=== PATIENT | female | born 1985 | race Caucasian/White ===

== ENCOUNTER 2016-09-03 11:22 | Observation (INO) | payer OTHER ==
[2016-09-03] MEDS: Lactated Ringers 1,000 ML PRIMARY IV ONE ×2 (11:55→12:30)
[2016-09-03] MEDS ORDERED: NORMAL SALINE 10 ML SYRINGE FLUSH IVP PRN ×2 (12:03→13:26)
[2016-09-03 12:16] LABS: BASOPHILS # (AUTO) 0.01 10*3/UL; BASOPHILS % (AUTO) 0.2 % (0-1); EOSINOPHILS % (AUTO) 0.3 % (0-8); HEMATOCRIT 23.9 % (37.0-47.0); HEMOGLOBIN 7.6 g/dL (12.0-16.0); IMM GRAN % (AUTO) 0.2 % (0-5); IMM GRAN# (AUTO) 0.01 10*3/UL; LYMPHOCYTES # (AUTO) 0.98 10*3/uL; LYMPHOCYTES % (AUTO) 15.9 % (10-50); MEAN CORPUSCULAR HEMOGLOBIN 29.7 PG (27-31); MEAN CORPUSCULAR HGB CONC 31.8 g/dL (33-37); MEAN PLATELET VOLUME 12.6 FL (7.4-12.2); MONOCYTES # (AUTO) 0.39 10*3/UL (0.3-0.8); MONOCYTES % (AUTO) 6.3 % (5-15); NEUTROPHILS # (AUTO) 4.75 10*3/UL; NEUTROPHILS % (AUTO) 77.1 % (50-80); RDW COEFFICIENT OF VARIATION 15.1 % (11.5-14.5); RED BLOOD COUNT 2.56 10^6/uL (4.20-5.40); WHITE BLOOD COUNT 6.16 10^3/uL (4.8-10.8)
[2016-09-03 12:19] LABS: PLATELET MORPHOLOGY COMMENT NORMAL MORPHOLOGY (NORM)
--- NOTE | 2016-09-03 12:28 | CONSULT ---
Consult Note - Consult Consult Date: 09/03/16 Reason for Consult: Other Requesting Physician: Dr. Owens Primary Care Provider: ADARSH OWENS - History of Present Illness History of Present Illness: This is a 30 years old female with medical history significant for history of sciatica, pneumonia back in October last year she said she was transferred to [place] they told her that she had some fluid overload after discharge she did not need any medications after that, she takes sometimes a muscle relaxer she said at night for sciatica. The hospitalist service were consulted because of bradycardia. The patient is in active labor, this is her fourth , she said she did feel earlier somewhat dizzy and had some chest pressure but not anymore now. There is no history of cardiac disease as far as she knows, they did do an echo back in October in [place] and did not tell if there is any abnormalities. Patient was laying in bed does not appear in distress. Past Medical History Medical History: History of pneumonia back in October of this year she was transferred to [place] was found to have fluid overload then. Surgical History: Appendectomy. Family History: Reviewed an Not Pertinent Tobacco Use: Never Smoker Substance Use Type: None Alcohol Use: None Review of Systems - Review of Systems All Systems: Reviewed & No Additional Complaints Except as Stated Medication / Allergies Home Medications: Home Medications Medication Instructions Recorded Confirmed Type Vit W-Ca,Fe,FA(<1 mg) 1 each PO DAILY #30 tab 06/11/16 Clinic [ Vitamins] Ferrous Sulfate EC [Feosol Ec] 324 mg PO QD #30 tab 07/01/16 Clinic HYDROcodone/APAP 5/325 Tab [[place] 1 each PO Q6H #10 tablet 08/20/16 Rx 5/325 Tab] Hydrocodone/Acetaminophen 1 tab PO Q6H PRN #20 tab 08/27/16 Clinic [Hydrocodon-Acetaminophen 5-325] Allergies/Adverse Reactions: Allergies Allergy/AdvReac Type Severity Reaction Status Date / Time No Known Allergies Allergy Verified 08/20/16 18:19 Exam - Vitals Vital Signs: Vital Signs Height 5 ft 6 in - General General Appearance: POSITIVE: No Acute Distress, Cooperative - Head Head Exam: POSITIVE: Normal Inspection - Eye Eye Exam: POSITIVE: Normal Appearance - ENT ENT Exam: POSITIVE: Normal Exam - Neck Neck Exam: POSITIVE: Normal Inspection - Respiratory Respiratory Exam: POSITIVE: Clear to Auscultation - Bilaterally - Cardiovascular Cardiovascular Exam: POSITIVE: RRR - GI/Abdominal Additional GI/Abdominal Exam Details: Monitors the applied to her abdomen. Torso heart rate and contractions. - Extremities Additional Extremities Exam Details: A bruise noted on the left anterior schafer - Neurological Neurological Exam: POSITIVE: Alert, Oriented x 3, CN II-XII Intact - Psychiatric Psychiatric Exam: POSITIVE: Normal Affect Results - Labs CBC and BMP: 09/03/16 12:00 Labs - Last 24 Hours: Laboratory Results 09/03/16 Range/Units 12:00 WBC 6.16 (4.8-10.8) 10^3/uL RBC 2.56 L (4.20-5.40) 10^6/uL Hgb 7.6 L (12.0-16.0) g/dL Hct 23.9 L (37.0-47.0) % MCV 93.4 (81-99) FL MCH 29.7 (27-31) PG MCHC 31.8 L (33-37) g/dL RDW Std Deviation 49.3 (39-50) fL RDW Coeff of Telly 15.1 H (11.5-14.5) % Plt Count 102 L (140-350) 10*3/uL MPV 12.6 H (7.4-12.2) FL Immature Gran % (Auto) 0.2 (0-5) % Neut % (Auto) 77.1 (50-80) % Lymph % (Auto) 15.9 (10-50) % Phillips % (Auto) 6.3 (5-15) % Eos % (Auto) 0.3 (0-8) % Baso % (Auto) 0.2 (0-1) % Immature Gran # (Auto) 0.01 10*3/UL Neut # (Auto) 4.75 10*3/UL Lymph # (Auto) 0.98 10*3/uL Phillips # (Auto) 0.39 (0.3-0.8) 10*3/UL Eos # (Auto) 0.02 10*3/UL Baso # (Auto) 0.01 10*3/UL WBC Morphology Comment Normal morphology (NORM) Plt Morphology Comment Normal morphology (NORM) RBC Morph Comment Normal morphology (NORM) Assessment and Plan - Patient Problems (1) Ectopic beats Current Visit: Yes Status: Acute Comment: The nurses thought that she had bradycardia, however that was on the pulse monitor. We put her on telemetry and did an EKG. EKG showed sinus rhythm with ectopic beats I think we'll check her potassium and magnesium. And we will watch. CBC was already ordered by Dr. Owens.
[2016-09-03 12:58] LABS: BASOPHILS # (AUTO) 0.02 10*3/UL; BASOPHILS % (AUTO) 0.2 % (0-1); EOSINOPHILS % (AUTO) 0.3 % (0-8); HEMATOCRIT 34.5 % (37.0-47.0); HEMOGLOBIN 11.4 g/dL (12.0-16.0); IMM GRAN % (AUTO) 0.3 % (0-5); IMM GRAN# (AUTO) 0.03 10*3/UL; LYMPHOCYTES # (AUTO) 1.32 10*3/uL; LYMPHOCYTES % (AUTO) 14.5 % (10-50); MEAN CORPUSCULAR HEMOGLOBIN 29.9 PG (27-31); MEAN PLATELET VOLUME 12.7 FL (7.4-12.2); MONOCYTES # (AUTO) 0.64 10*3/UL (0.3-0.8); NEUTROPHILS # (AUTO) 7.05 10*3/UL; NEUTROPHILS % (AUTO) 77.7 % (50-80); RDW COEFFICIENT OF VARIATION 15.5 % (11.5-14.5); RED BLOOD COUNT 3.81 10^6/uL (4.20-5.40); WHITE BLOOD COUNT 9.09 10^3/uL (4.8-10.8)
--- NOTE | 2016-09-03 13:01 | OB.PROGRES ---
Date and Time of Service: 09/03/16 @ 1215 Interval History: The patient was sent to labor and delivery this morning after c/o pelvic pain and pressure. Once she arrived to the L&D unit, she was noted to have an intermittent heart rate drops to the 20s-30s. She apparently was having some chest pain and pressure when the low heart rate. She was dehydrated upon admission. Dr. Duong was consulted and saw the pt. An EKG and labs were ordered. She notes that she was having some pelvic pain and contractions. Denies vag bleeding or gushes of fluid. Objective - Cervical Exam Cervical Exam: /-1 per Dian RN [place]: irritability, occasional contractions Heart Rate: 130s, + accels, no decels noted Heart Rate Interpretation Category: Category I - Labs CBC and BMP: 09/03/16 12:00 Labs - Last 24 Hours: Laboratory Results 09/03/16 Range/Units 12:00 WBC 6.16 (4.8-10.8) 10^3/uL RBC 2.56 L (4.20-5.40) 10^6/uL Hgb 7.6 L (12.0-16.0) g/dL Hct 23.9 L (37.0-47.0) % MCV 93.4 (81-99) FL MCH 29.7 (27-31) PG MCHC 31.8 L (33-37) g/dL RDW Std Deviation 49.3 (39-50) fL RDW Coeff of Telly 15.1 H (11.5-14.5) % Plt Count 102 L (140-350) 10*3/uL MPV 12.6 H (7.4-12.2) FL Immature Gran % (Auto) 0.2 (0-5) % Neut % (Auto) 77.1 (50-80) % Lymph % (Auto) 15.9 (10-50) % Mccracken % (Auto) 6.3 (5-15) % Eos % (Auto) 0.3 (0-8) % Baso % (Auto) 0.2 (0-1) % Immature Gran # (Auto) 0.01 10*3/UL Neut # (Auto) 4.75 10*3/UL Lymph # (Auto) 0.98 10*3/uL [place] # (Auto) 0.39 (0.3-0.8) 10*3/UL Eos # (Auto) 0.02 10*3/UL Baso # (Auto) 0.01 10*3/UL WBC Morphology Comment Normal morphology (NORM) Plt Morphology Comment Normal morphology (NORM) RBC Morph Comment Normal morphology (NORM) Assessment and Plan - Patient Problems (1) Ectopic beats Current Visit: Yes Status: Acute (2) Term Current Visit: Yes Status: Acute - Assessment / Plan Additional Assessment/Plan Details: -pt seen in conjunction with Dr. Duong, the hospitalist. She is having frequent PVCs on EKG, but no arrhythmias. Her hgb is also slightly low, but this is being re-run in the lab at this time. Her BMP is also pending. -will keep the pt for now in observation on telemetry. -she did have significant cervical change from last week, so will also monitor for labor. -GBS is pending as it did not get run in the lab last week. I re-collected it in the office today. -anti-E antibody--lab has ordered this blood and will have it available for transfusion should the pt need it after delivery. She may or may not be in labor at this time. -continue to monitor closely. - Time Time Spent With Patient: Greater Than 35 Mint[place]
[2016-09-03 13:04] LABS: PLATELET MORPHOLOGY COMMENT NORMAL MORPHOLOGY (NORM)
[2016-09-03 13:11] LABS: CHLORIDE 105 meq/L (98-112); POTASSIUM 4.1 meq/L (3.8-5.2); SODIUM 136 meq/L (135-145)
[2016-09-03 13:12] LABS: ASPARTATE AMINO TRANSFERASE 20 IU/L (8-39); BILIRUBIN,TOTAL 0.6 mg/dL (0.3-1.2); BLOOD UREA NITROGEN 9 mg/dL (7-22); CALCIUM 8.4 mg/dL (8.7-10.7); CREATININE 0.6 mg/dL (0.50-1.20); EST GLOMERULAR FILTRATION > 60 (>60 ml/min/1.73m(2)); GLUCOSE 62 mg/dL (78-110); TOTAL PROTEIN 6.1 g/dL (6.1-8.0)
[2016-09-03 13:22] LABS: BILIRUBIN,URINE NEGATIVE (NEG); CLARITY,URINE CLEAR (CLEAR); GLUCOSE, URINE (UA) NEGATIVE (NEG); LEUKOCYTE ESTERASE ,URINE TRACE (NEG); NITRATE,URINE NEGATIVE (NEG); OCCULT BLOOD,URINE MODERATE (NEG); PH,URINE 6.5 (5.0-8.5); PROTEIN,URINE NEGATIVE (NEG); UROBILINOGEN,URINE 0.2 EU/dL (0.2)
[2016-09-03 13:24] LABS: URINE SAMPLE TYPE CLEAN CATCH URINE
[2016-09-03] MEDS ORDERED: ONDANSETRON 4 MG/2 ML VIAL IVP PRN (13:26)
[2016-09-03] MEDS ORDERED: LIDOCAINE W/ SODIUM BICARB 0.5 ML SYR SUBD PRN (13:26)
[2016-09-03 13:31] LABS: BACTERIA,URINE RARE; SQUAMOUS EPITHELIAL CELL,UR MANY
--- NOTE | 2016-09-03 13:31 | EKG ---
[address] [place] [id number] Measurements Intervals [place] Rate: 76 P: 11 GA: 164 QRS: 98 QRSD: 89 T: 36 QT: 357 QTc: 387 Interpretive Statements SINUS RHYTHM WITH FREQUENT VENTRICULAR PREMATURE COMPLEXES BORDERLINE RIGHT AXIS DEVIATION ABNORMAL RHYTHM ECG Compared to ECG 11/14/2015 18:28:26 Ventricular premature complex(es) now present Sinus tachycardia no longer present Electronically Signed On 09-03-16 16:16:30 [facility] by Deandre Cox [id number]
[2016-09-03] MEDS: D5-1/2NS + 20mEq KCL 1,000 ML PRIMARY IV SCH (14:19)
[2016-09-03 15:27] VITALS: RESP 18
[2016-09-03] MEDS ORDERED: Magnesium Sulfate 2gm (Premix) 2 GM in Premix 1 BAG IV ONE (15:40)
[2016-09-03 17:23] VITALS: TEMP 97.9
[2016-09-03] MEDS ORDERED: ACETAMINOPHEN 325 MG TABLET PO PRN (18:07)
[2016-09-04] MEDS: D5-1/2NS + 20mEq KCL 1,000 ML PRIMARY IV SCH (01:00)
[2016-09-04 06:48] LABS: HEMATOCRIT 34.7 % (37.0-47.0); HEMOGLOBIN 11.2 g/dL (12.0-16.0); MEAN CORPUSCULAR HEMOGLOBIN 29.4 PG (27-31); MEAN CORPUSCULAR HGB CONC 32.3 g/dL (33-37); MEAN PLATELET VOLUME 12.8 FL (7.4-12.2); RDW COEFFICIENT OF VARIATION 15.6 % (11.5-14.5); RED BLOOD COUNT 3.81 10^6/uL (4.20-5.40); WHITE BLOOD COUNT 7.32 10^3/uL (4.8-10.8)
[2016-09-04 07:12] LABS: BLOOD UREA NITROGEN 10 mg/dL (7-22); BUN/CREATININE RATIO 16.66 (6-20); CHLORIDE 112 meq/L (98-112); CREATININE 0.6 mg/dL (0.50-1.20); EST GLOMERULAR FILTRATION > 60 (>60 ml/min/1.73m(2)); POTASSIUM 3.9 meq/L (3.8-5.2); SODIUM 137 meq/L (135-145)
[2016-09-04 07:13] LABS: CALCIUM 7.9 mg/dL (8.7-10.7); GLUCOSE 66 mg/dL (78-110); MAGNESIUM 1.8 mg/dL (1.6-2.4)
[2016-09-04] MEDS ORDERED: Magnesium Sulfate 2gm (Premix) 2 GM in Premix 1 BAG IV ONE (07:21)
[2016-09-04] MEDS ORDERED: Prenatal Multivitamin Tab 1 TAB TAB PO SCH (09:00)
[2016-09-04] MEDS ORDERED: FERROUS GLUCONATE 324 MG TABLET PO SCH (10:00)
[2016-09-04 20:03] LABS: NT-PRO BNP 112 PG/ML (0-125)
[2016-09-05] MEDS ORDERED: FERROUS GLUCONATE 324 MG TABLET PO SCH (10:00)
--- NOTE | 2016-09-07 10:16 | OB.PROGRES ---
Date and Time of Service: 09/04/16 @ 7442 Interval History: Karlene had a good noc, was still feeling some chest heaviness this morning. On recheck of her magnesium level, she was noted to be below 2 at 1.8. She was given 2 more grams of magnesium IV and is feeling much better. Her PVC's have decreased dramatically with the second administration of mag. She denies cramping, contractions, vag bleeding or gushes of fluid. Baby is moving around well. Objective - Cervical Exam Cervical Exam: no exam done [place]: no contractions noted. Heart Rate: baseline 130s, + accels, no decels noted. Heart Rate Interpretation Category: Category I - Labs CBC and BMP: 09/04/16 05:35 09/04/16 05:35 Additional Lab Results: CBC essentially normal this morning. Chem panel also normal. Mag level went from 1.6 to 1.8 with 2 gms of mag IV. Still having multiple PVCs/runs of bigeminy and trigeminy prior to second administration of mag. After mag, her telemetry shows normal sinus rhythm with no arrhythmias noted. - Vital Signs Last Taken Vital Signs: Vital Signs - Last Taken Temperature 97.9 F 09/04/16 11:17 Pulse Rate 82 09/04/16 11:17 Respiratory Rate 18 09/04/16 11:17 Blood Pressure 121/66 09/04/16 11:17 Pulse Ox 97 09/04/16 11:17 Assessment and Plan - Patient Problems (1) Ectopic beats Status: Acute (2) Term Status: Acute - Assessment / Plan Additional Assessment/Plan Details: -discussed with Dr. Cox again. Will supplement pt with mag oxide PO as an out patient. -still awaiting results of her echo, will call the pt when these are back. -labor precautions. -f/u: as scheduled next week in the office but sooner if needed.
== END 2016-09-04 14:18 | disposition home or self-care (01) ==
LOC: MOB LAB 11:22 → OBOP 11:22 → OBIP 13:26
PROVIDERS: ADMIT Family Medicine; ATTEND Family Medicine
DX: O26.893 Other specified pregnancy related conditions, third trimester (principal); R00.9 Unspecified abnormalities of heart beat
CPT/HCPCS: 36415; 80048; 80053; 81001; 81003; 83735; 83880; 85025; 85027; 86850; 86870; 86900; 86901; 87150; 93005; 93010; 93306; 96361; 96365; J3475; J7120

== ENCOUNTER 2016-09-09 12:42 | Outpatient (CLI) | payer OTHER ==
[2016-09-09] MEDS ORDERED: NORMAL SALINE 10 ML SYRINGE FLUSH IVP PRN (13:17)
[2016-09-09 13:40] VITALS: RESP 16; TEMP 97.6
--- NOTE | 2016-09-09 14:28 | EKG ---
[address] [address] Measurements Intervals [place] Rate: 83 P: 50 [place]: 132 QRS: 90 QRSD: 94 T: 42 QT: 360 QTc: 400 Interpretive Statements SINUS RHYTHM WITH FREQUENT VENTRICULAR PREMATURE COMPLEXES ST CHANGES OF EARLY REPOLARIZATION ABNORMAL RHYTHM ECG Compared to ECG 09/03/2016 12:05:17 No significant changes Electronically Signed On 09-09-16 17:55:59 [facility] by Deandre Cox [id number]
--- NOTE | 2016-09-10 21:49 | PDOC(PROG) ---
Intake - - Reason for Visit/Chief Complaint: NST Admitted From: Home - Estimated Due Date: 10/28/16 Gestational Age in Weeks and Days: 33 Weeks and 1 Days : 4 Para: 3 Term Births: 3 Births: 0 Living Children: 3 - Labs Blood Type and Rh: O+ Group B Strep: Positive Hepatitis B Surface Antigen: Absent HIV: Negative Rubella Status: Immune VDRL/RPR: Absent Maternal - Vital Signs Last Taken Vital Signs: Vital Signs - Last Taken Temperature 97.6 F 09/09/16 12:50 Pulse Rate 87 09/09/16 12:50 Respiratory Rate 16 09/09/16 12:50 Blood Pressure 124/60 09/09/16 12:50 Pulse Ox 97 09/09/16 12:50 - Uterine Activity Uterine Contraction Monitor Mode: External Contraction Frequency(minutes): none noted pt denies none palpated - Cervical Exam Cervical Dilation (cm): 3 Cervical Effacement Percentage: 80 Station: -2 Exam Performed By: Wilian - Vaginal Discharge Vaginal Bleeding Amount: None Vaginal Discharge Amount: None Monitoring - Uterine Activity Uterine Contraction Monitor Mode: External Contraction Frequency(minutes): none noted pt denies none palpated Results - Bedside Testing Bedside Urine Ketone: Negative Bedside Urine Leukocytes Esterase: Negative Bedside Urine Nitrite: Negative Bedside Urine Occult Blood: Negative Bedside Urine Protein: Trace Bedside Specific [place]: 1.025 Assessment and Plan - Patient Problems (1) Decreased movement Status: Acute
== END 2016-09-09 16:30 | disposition home or self-care (01) ==
LOC: OBOP 12:42
PROVIDERS: ATTEND Family Medicine
DX: O36.8130 Decreased fetal movements, third trimester, not applicable or unspecified (principal); O26.893 Other specified pregnancy related conditions, third trimester; I49.9 Cardiac arrhythmia, unspecified; Z3A.38 38 weeks gestation of pregnancy
CPT/HCPCS: 36415; 59025; 81003; 83735; 93005; 93010; 99211

== ENCOUNTER → 2016-09-15 | Outpatient (CLI) | payer OTHER | LOC: LAB 10:26 | PROVIDERS: ATTEND Family Medicine | DX: O26.893 Other specified pregnancy related conditions, third trimester (principal); E83.42 Hypomagnesemia; Z3A.39 39 weeks gestation of pregnancy | CPT/HCPCS: 36415; 83735 ==

== ENCOUNTER 2016-09-16 10:19 | Outpatient (CLI) | payer OTHER ==
[2016-09-16] MEDS ORDERED: Magnesium Sulfate (Premix) 500 ML IV SCH (10:25)
[2016-09-16] MEDS ORDERED: MAGNESIUM SULFATE 4 GM IV ONE (10:30)
[2016-09-16] MEDS ORDERED: Sodium Chloride 0.9% 50 ML IV PRN (10:30)
[2016-09-16] MEDS ORDERED: HEPARIN 500 UNIT/5 ML SYRINGE FOR CENTRAL LINE IVP PRN (10:30)
[2016-09-16] MEDS: NORMAL SALINE 10 ML SYRINGE FLUSH IVP PRN ×2 (10:40→13:44)
[2016-09-16 10:47] VITALS: RESP 18; TEMP 98.7
--- NOTE | 2016-09-22 13:04 | PDOC(PROG) ---
Intake - - Reason for Visit/Chief Complaint: NST - Para: 3 Term Births: 3 Births: 0 Living Children: 3 - Labs Blood Type and Rh: O+ Maternal - Vital Signs Last Taken Vital Signs: Vital Signs - Last Taken Temperature 98.7 F 09/16/16 10:44 Pulse Rate 90 09/16/16 10:44 Respiratory Rate 18 09/16/16 10:44 Blood Pressure 120/62 09/16/16 10:44 Pulse Ox 96 09/16/16 10:44 Assessment and Plan - Patient Problems (1) Hypomagnesemia Status: Acute
== END 2016-09-16 13:45 | disposition home or self-care (01) ==
LOC: IV THERAPY 10:19
PROVIDERS: ATTEND Family Medicine
DX: O26.893 Other specified pregnancy related conditions, third trimester (principal); E83.42 Hypomagnesemia; Z3A.40 40 weeks gestation of pregnancy
CPT/HCPCS: 96365; 96366; 99211; J3475

== ENCOUNTER 2016-09-18 03:15 | Inpatient (IN) | payer OTHER ==
[2016-09-18 03:28] VITALS: RESP 18
[2016-09-18] MEDS ORDERED: NORMAL SALINE 10 ML SYRINGE FLUSH IVP PRN ×2 (03:32→14:19)
[2016-09-18] MEDS ORDERED: ePHEDrine Inj 5 MG in Normal Saline Flush 1 ML IVP PRN (03:35)
[2016-09-18] MEDS ORDERED: OXYTOCIN 10 UNIT/1 ML IM PRN (03:35)
[2016-09-18] MEDS ORDERED: NALOXONE 0.4 MG/1 ML VIAL IVP PRN (03:35)
[2016-09-18] MEDS ORDERED: Metoclopramide Inj 10 MG/2 ML VIAL IV PRN (03:35)
[2016-09-18] MEDS ORDERED: Famotidine Inj 20 MG in Normal Saline Flush 10 ML IVP PRN ×4 (03:35)
[2016-09-18] MEDS ORDERED: MISOPROSTOL 200 MCG TABLET RECTAL PRN (03:35)
[2016-09-18] MEDS ORDERED: CITRIC ACID/SODIUM CITRATE 30 ML CUP PO PRN (03:35)
[2016-09-18] MEDS ORDERED: ONDANSETRON 4 MG/2 ML VIAL IVP PRN ×2 (03:35→14:19)
[2016-09-18] MEDS ORDERED: LIDOCAINE W/ SODIUM BICARB 0.5 ML SYR SUBD PRN (03:35)
[2016-09-18] MEDS ORDERED: Naloxone Inj 0.01 MG in Normal Saline Flush 1 ML IVP PRN (03:35)
[2016-09-18] MEDS ORDERED: Phenylephrine Inj 50 MCG in Normal Saline Flush 0.5 ML IVP PRN (03:35)
[2016-09-18] MEDS ORDERED: fentaNYL Inj 100 MCG/2 ML VIAL IV PRN (03:35)
[2016-09-18] MEDS ORDERED: Carboprost Inj 250 MCG/ML AMP IM PRN (03:35)
[2016-09-18] MEDS ORDERED: METHYLERGONOVINE MALEATE 0.2 MG/1 ML VIAL IM PRN ×2 (03:35→14:19)
[2016-09-18] MEDS ORDERED: Lidocaine 1% 10 MG/ML - 20 ML VIAL SUBCUT PRN (03:35)
[2016-09-18] MEDS ORDERED: Nalbuphine Inj 20 MG/ML Ampule IVP PRN ×2 (03:35→14:19)
[2016-09-18] MEDS ORDERED: CALCIUM CARBONATE 500 MG (TUMS) CHEWABLE TABLET PO PRN ×2 (03:35→14:19)
[2016-09-18] MEDS ORDERED: TERBUTALINE SULFATE 1 MG/1 ML SDV SUBCUT PRN (03:35)
[2016-09-18] MEDS ORDERED: BUTORPHANOL TARTRATE 2 MG/1 ML VIAL IVP PRN (03:35)
[2016-09-18] MEDS ORDERED: CefOXitin Inj 2 GM in Sodium Chloride 0.9% 100 ML IV PRN (03:35)
[2016-09-18] MEDS ORDERED: Oxytocin 20 Units + LR 1,000 ML IV SCH ×3 (03:45→14:30)
[2016-09-18] MEDS: Lactated Ringers-OB Dept 1,000 ML PRIMARY IV SCH ×4 (04:14→11:55)
[2016-09-18 04:22] LABS: HEMATOCRIT 36.8 % (37.0-47.0); HEMOGLOBIN 12.4 g/dL (12.0-16.0); MEAN CORPUSCULAR HEMOGLOBIN 30.4 PG (27-31); MEAN CORPUSCULAR HGB CONC 33.7 g/dL (33-37); MEAN PLATELET VOLUME 12.5 FL (7.4-12.2); RDW COEFFICIENT OF VARIATION 15.5 % (11.5-14.5); RED BLOOD COUNT 4.08 10^6/uL (4.20-5.40); WHITE BLOOD COUNT 11.14 10^3/uL (4.8-10.8)
[2016-09-18] MEDS ORDERED: Fent/Bupiv 2mcg/0.0625% Epid 250 ML ONE (05:09)
--- NOTE | 2016-09-18 06:03 | CRNA.PROCE ---
Central Neuraxis Block [facility] - - Safety Measures: Site Verified - - Type of Block: Epidural Reason for Block: Analgesia (Labor analgesia. 4th baby.Term. Laboring all evening at home. Reported to be by OB RN-5cm, 100% effaced, and membranes intact.) Moniters Used During Block: SPO2, NIBP Positioning: Sitting Skin Prep Used: Betadine (Times 3) Draped: Yes Skin Infiltration - Enter Amount Used in Comment Field: 1% Xylocaine (mL): Yes ( 1.5 ml) Spinal Needle Used: 18 Hustead 80 mm (KAYLENE technique with saline. Faulkner KAYLENE, cath threaded 3 plus cm, transient parasthesia side.) Local Anesthetic - Enter Amount Used in Comment Field: 1.5 % Xylocaine with Epinephrine 1:200,000 (mL): Yes (4 ml as test dose) Number of Centimeters Catheter Threaded: 3.2 Bioclusive Dressing Applied: Yes (Taped all up.) - - Additional Details: E divines reviewed.
[2016-09-18] MEDS ORDERED: fentaNYL 2 MCG/BUPIVACAINE 0.0625%/NS 0.9% 250 ML BAG EPIDURAL ONE (06:13)
[2016-09-18] MEDS ORDERED: Magnesium Sulfate 2gm (Premix) 2 GM in Premix 1 BAG IV ONE (08:05)
--- NOTE | 2016-09-18 09:24 | OB.PROGRES ---
Date and Time of Service: 09/18/16 @ 0900 Interval History: Pt is a 30 yo at 40 weeks by first trimester u/s, who presented last noc with cramping and pelvic pain. Her cervix was 5 cm/100%. She was admitted, IV started and she was given penicillin for GBS+ status. She had an epidural placed for pain control. She denied any vag bleeding or gushes of fluid. Currently, she is not having any complaints. She does have occasional chest heaviness associated with HR that are occasionally dipping into the 40s. Telemetry has been placed. The pt has a h/o PVCs/bigeminy/trigeminy that was responsive to magnesium replacement. Objective - Cervical Exam Cervical Exam: 6-7/100/-1 [place]: do not appear to be tracing well--around every 10 minutes. Heart Rate: 130, reactive with moderate variability; no decles noted. + accels. Heart Rate Interpretation Category: Category I - Labs CBC and BMP: 09/18/16 04:10 Labs - Last 24 Hours: Laboratory Results 09/18/16 09/18/16 Range/Units 04:10 04:20 WBC 11.14 H (4.8-10.8) 10^3/uL RBC 4.08 L (4.20-5.40) 10^6/uL Hgb 12.4 (12.0-16.0) g/dL Hct 36.8 L (37.0-47.0) % MCV 90.2 (81-99) FL MCH 30.4 (27-31) PG MCHC 33.7 (33-37) g/dL RDW Std Deviation 50.6 H (39-50) fL RDW Coeff of Telly 15.5 H (11.5-14.5) % Plt Count 149 (140-350) 10*3/uL MPV 12.5 H (7.4-12.2) FL Magnesium 1.8 (1.6-2.4) mg/dL - Vital Signs Last Taken Vital Signs: Vital Signs - Last Taken Temperature 97.6 F 09/18/16 03:28 Pulse Rate 90 09/18/16 07:35 Respiratory Rate 18 09/18/16 06:45 Blood Pressure 113/39 09/18/16 08:00 Pulse Ox 98 09/18/16 07:34 Assessment and Plan - Assessment / Plan Additional Assessment/Plan Details: -GBS+, has received 2 doses of PCN. -AROM completed with return of scant amount of clear fluid. -ectopy/occasional bradycardia: pt is on telemetry, and mag is being replaced IV at this time (slow rate). -pt has signed consent and is requesting tubal ligation. Will plan to do this tomorrow per Dr. Velazquez. -expectant management/anticipate normal vaginal delivery.
[2016-09-18] MEDS ORDERED: BENZOCAINE/MENTHOL SPRAY 56 GM BOTTLE TOPICAL PRN (14:19)
[2016-09-18] MEDS ORDERED: diphenhydrAMINE 50 MG/1 ML VIAL IVP PRN (14:19)
[2016-09-18] MEDS ORDERED: Ondansetron ODT Tab 4 MG TAB PO PRN (14:19)
[2016-09-18] MEDS ORDERED: diphenhydrAMINE 25 MG CAPSULE PO PRN (14:19)
[2016-09-18] MEDS ORDERED: ACETAMINOPHEN 325 MG TABLET PO PRN (14:19)
[2016-09-18] MEDS ORDERED: LANOLIN HPA 40 GM TUBE TOPICAL PRN (14:19)
[2016-09-18] MEDS ORDERED: GLYCERIN/WITCH HAZEL 1 BOX TOPICAL PRN (14:19)
[2016-09-18] MEDS ORDERED: DIPH,PERTUSS,TET(ADACEL) VAC/PF 0.5 ML (Tdap) IM SCH (14:30)
--- NOTE | 2016-09-18 15:27 | OB.DEL.SUM ---
Delivery Note Delivery Summary: Pt is a 30 yo G4 now P4 at 40 weeks who presented to labor and delivery early this morning. She progressed to 6-7/100/-1 at 0830 and underwent AROM with clear fluid. She progressed, with pitocin augmentation to c/c/+1 under epidural anesthesia. She pushed for 20 minutes to the delivery of a viable male over an intact perineum at 1341. The nose and mouth were suctioned and the cord was doubly clamped by myself and cut by the father of the baby. The baby was handed to the waiting nurse. Cord blood and cord gases were obtained for analysis. The placenta delivered spontaneously and intact with a 3 vessel cord a short time later. 20 mU of pitocin were infused wide open for moderate to heavy lochia. Even with bimanual massage, there was brisk vaginal bleeding, so methergine 0.2 mg were given IM. The uterus firmed up nicely after this. The vagina and perineum were examined and no lacerations were noted. Apgars were 9 at 1 minute and 9 at 5 minutes. Baby weighed 8#15oz and was 21 inches long. Both mom and baby tolerated delivery well and are in stable condition at this time.
[2016-09-18] MEDS: IBUPROFEN 800 MG TABLET PO PRN (16:14)
[2016-09-18] MEDS: NORMAL SALINE 10 ML SYRINGE FLUSH IVP PRN (18:30)
[2016-09-18] MEDS: diphenhydrAMINE 50 MG/1 ML VIAL IVP PRN (18:30)
[2016-09-18] MEDS: DOCUSATE 100 MG CAPSULE PO SCH (21:46)
[2016-09-18] MEDS: HYDROcodone-APAP 5 MG -325 MG TABLET PO PRN (21:53)
[2016-09-19] MEDS: diphenhydrAMINE 50 MG/1 ML VIAL IVP PRN (00:07)
[2016-09-19] MEDS: NORMAL SALINE 10 ML SYRINGE FLUSH IVP PRN ×2 (00:08→09:11)
[2016-09-19] MEDS: IBUPROFEN 800 MG TABLET PO PRN ×2 (00:08→08:28)
[2016-09-19] MEDS: Lactated Ringers-OB Dept 1,000 ML PRIMARY IV SCH (00:21)
[2016-09-19] MEDS: HYDROcodone-APAP 5 MG -325 MG TABLET PO PRN (05:35)
[2016-09-19 05:53] VITALS: TEMP 98.2
[2016-09-19 06:31] LABS: HEMOGLOBIN 11.4 g/dL (12.0-16.0); MEAN CORPUSCULAR HEMOGLOBIN 30.1 PG (27-31); MEAN CORPUSCULAR HGB CONC 32.6 g/dL (33-37); MEAN PLATELET VOLUME 12.8 FL (7.4-12.2); RDW COEFFICIENT OF VARIATION 15.8 % (11.5-14.5); RED BLOOD COUNT 3.79 10^6/uL (4.20-5.40); WHITE BLOOD COUNT 12.05 10^3/uL (4.8-10.8)
[2016-09-19] MEDS: DOCUSATE 100 MG CAPSULE PO SCH (08:29)
[2016-09-19] MEDS ORDERED: Magnesium Sulfate 4gm (Premix) 4 GM in Premix 1 BAG IV ONE (08:43)
[2016-09-19] MEDS ORDERED: Prenatal Multivitamin Tab 1 TAB TAB PO SCH (09:00)
[2016-09-19 09:07] LABS: BLOOD UREA NITROGEN 10 mg/dL (7-22); BUN/CREATININE RATIO 11.11 (6-20); CALCIUM 8.6 mg/dL (8.7-10.7); CHLORIDE 107 meq/L (98-112); CREATININE 0.9 mg/dL (0.50-1.20); EST GLOMERULAR FILTRATION > 60 (>60 ml/min/1.73m(2)); GLUCOSE 60 mg/dL (78-110); POTASSIUM 4.1 meq/L (3.8-5.2); SODIUM 138 meq/L (135-145)
--- NOTE | 2016-09-19 11:25 | DI ---
VENOUS DOPPLER ULTRASOUND OF THE RIGHT LOWER EXTREMITY, 09/19/2016 9:24 AM: Clinical History: Right calf pain. The patient is status post recent delivery. Previous Exam: None. Technique: 2D real-time imaging is supplemented with color Doppler ultrasound. Compression and augmen tation maneuvers were performed. The deep venous system from the groin to the popliteal fossa is norm al. The greater saphenous vein is normal. Reading: Normal venous Doppler ultrasound of the right lower extremity.
[2016-09-19] MEDS ORDERED: MAGNESIUM OXIDE 400 MG TABLET PO SCH (13:00)
--- NOTE | 2016-09-19 13:05 | OB.PROGRES ---
Subjective Post Day: 1 [place] Catheter: No Flatus: Yes Diet: Regular Feeding Method: Formula Feeding Ambulating: Yes Concerns / Additional Information: Very tired today. Also c/o right calf pain that started after she got up to the bathroom this morning. Had a HAYNES last noc, but it is better today. C/o back pain where her epidural was placed. Denies any further chest pain/pressure, dizziness or shortness of breath. Objective - General General Appearance: POSITIVE: No Acute Distress (appears very tired), Cooperative - Cardiovacular Cardiovascular Exam: POSITIVE: RRR Edema: +1 Pedal Edema Extremities: Negative Jose's - Left Leg - Respiratory Respiratory Exam: POSITIVE: Clear to Auscultation - Bilaterally, Breathing Non Labored Assesstment / Plan (1) Status post vaginal delivery Current Visit: Yes Status: Acute Assessment / Plan: -routine cares. -discussed pt's magnesium levels with Dr. Downey, nephrology. He suggested starting amiloride 5 mg po bid for its magnesium/potassium sparing properties, while continuing her oral mag supplementation at 400 mg po qid. Will recheck BMP and mag level on Thursday. Plan discussed with pt. -pt has decided against her tubal ligation, would instead like to do an IUD at 6 weeks. -pt requesting d/c home today.
== END 2016-09-19 15:31 | disposition home or self-care (01) | DRG 775 ==
LOC: OBOP 03:15 → OBIP 03:35
PROVIDERS: ADMIT Family Medicine; ATTEND Family Medicine
PROC: 10E0XZZ Delivery of Products of Conception, External Approach (ICD-10-PCS; principal; 2016-09-18)
DX: O80 Encounter for full-term uncomplicated delivery (principal); Z3A.40 40 weeks gestation of pregnancy; Z37.0 Single live birth
CPT/HCPCS: 36415; 80048; 81003; 83735; 85027; 86850; 86870; 86900; 86901; 93971; J1200; J2210; J2405; J2540; J3010; J3475; J3490; J7050; J7120; Q0163

== ENCOUNTER → 2016-09-22 | Outpatient (CLI) | payer OTHER ==
[2016-09-22 12:00] LABS: BLOOD UREA NITROGEN 12 mg/dL (7-22); CALCIUM 10.1 mg/dL (8.7-10.7); CHLORIDE 105 meq/L (98-112); CREATININE 0.8 mg/dL (0.50-1.20); EST GLOMERULAR FILTRATION > 60 (>60 ml/min/1.73m(2)); GLUCOSE 82 mg/dL (78-110); MAGNESIUM 1.7 mg/dL (1.6-2.4); POTASSIUM 4.5 meq/L (3.8-5.2); SODIUM 136 meq/L (135-145)
== END ==
LOC: LAB 11:06
PROVIDERS: ATTEND Family Medicine
DX: O26.893 Other specified pregnancy related conditions, third trimester (principal); Z79.899 Other long term (current) drug therapy; Z3A.39 39 weeks gestation of pregnancy
CPT/HCPCS: 36415; 80048; 83735

== ENCOUNTER → 2016-10-06 | Outpatient (CLI) | payer OTHER ==
[2016-10-06 10:54] LABS: BLOOD UREA NITROGEN 16 mg/dL (7-22); CALCIUM 8.9 mg/dL (8.7-10.7); CHLORIDE 104 meq/L (98-112); EST GLOMERULAR FILTRATION > 60 (>60 ml/min/1.73m(2)); GLUCOSE 85 mg/dL (78-110); POTASSIUM 4.3 meq/L (3.8-5.2); SODIUM 139 meq/L (135-145)
== END ==
LOC: LAB 10:21
PROVIDERS: ATTEND Family Medicine
DX: Z79.899 Other long term (current) drug therapy (principal)
CPT/HCPCS: 36415; 80048; 83735

== ENCOUNTER → 2016-12-17 | Outpatient (CLI) | payer OTHER ==
[2016-12-17 13:10] LABS: BLOOD UREA NITROGEN 16 mg/dL (7-22); CALCIUM 9.6 mg/dL (8.7-10.7); EST GLOMERULAR FILTRATION > 60 (>60 ml/min/1.73m(2)); MAGNESIUM 1.9 mg/dL (1.6-2.4)
== END ==
LOC: MOB LAB 11:59
PROVIDERS: ATTEND Family Medicine
DX: R79.0 Abnormal level of blood mineral (principal)
CPT/HCPCS: 36415; 80048; 83735